=== PATIENT | female | born 1970 | race Hispanic/Latino ===

== ENCOUNTER 2020-02-29 08:38 | Emergency (ER) | payer OTHER ==
--- OUTSIDE RECORDS SUMMARY | 2020-02-29 08:40 | XMS REPORT | Continuity of Care Document ---
:1970 Author Organization Formerly [facility] t Address [address] [place] [address] Care Team Providers Name Role Phone DR YUE Attending Clinician Unavailable DR YUE Admitting Clinician Unavailable Problems This patient has no known problems. Allergies, Adverse Reactions, Alerts This patient has no known allergies or adverse reactions. Medications This patient has no known medications. Procedures This patient has no known procedures. Encounters Start End Encounter Admission Attending Care Care Encounter Source Date/Time Date/Time Type Type Clinicians Facility Department ID 2018-12-26 2018-12-26 Outpatient [facility] [id number] [facility] 04:40:00 16:30:00 [facility] 2018-06-27 2018-06-27 Outpatient [facility] [id number] [facility] 05:14:00 17:00:00 [facility] Results Test Description Test Time Test Comments Results Result Comments Source URINE [facility] 2018-06-27 07:45:00 Test Item Value Reference Range Interpretation Comme nts PREG UR (test code = PGU) NEGATIVE NEGATIVE
[2020-02-29] MEDS ORDERED: KETOROLAC 30 MG/ML INJ ONE (09:29)
--- NOTE | 2020-02-29 09:46 | EDPHYS ---
Physician Documentation [facility] Name: Christie Neal Age: 49 yrs Sex: Female : 1970 Arrival Date: 02/29/2020 Time: 08:42 Bed 17 Private MD: Jj Smith R ED Physician Roberto Albrecht HPI: 02/28 09:40 This 49 yrs old Female presents to ER via Ambulatory with complaints of Ankle tw4 Swelling, Feet Swelling. 09:40 The patient presents with pain, that is acute. The complaints affect the right ankle. tw4 Onset: The symptoms/episode began/occurred today. Context: The problem was sustained at home. Associated signs and symptoms: The patient has no apparent associated signs or symptoms. Modifying factors: The symptoms are alleviated by nothing, the symptoms are aggravated by nothing. The patient has not experienced similar symptoms in the past. 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 - Social history:: Smoking status: Patient denies any tobacco usage or history of. ROS: 09:40 Constitutional: Negative for fever, chills, and weight loss, Eyes: Negative for injury, tw4 pain, redness, and discharge, Cardiovascular: Negative for chest pain, palpitations, and edema, Respiratory: Negative for shortness of breath, cough, wheezing, and pleuritic chest pain, Abdomen/GI: Negative for abdominal pain, nausea, vomiting, diarrhea, and constipation, Back: Negative for injury and pain, Skin: Negative for injury, rash, and discoloration, Neuro: Negative for headache, weakness, numbness, tingling, and seizure. 09:40 MS/extremity: Positive for injury or acute deformity, swelling, tenderness, Negative for abrasion, contusion, decreased range of motion, deformity, erythema, laceration, tingling, warmth. Exam: 09:40 Constitutional: This is a well developed, well nourished patient who is awake, alert, tw4 and in no acute distress. Head/Face: Normocephalic, atraumatic. Cardiovascular: Regular rate and rhythm with a normal S1 and S2. No gallops, murmurs, or rubs. Normal PMI, no JVD. No pulse deficits. Respiratory: Lungs have equal breath sounds bilaterally, clear to auscultation and percussion. No rales, rhonchi or wheezes noted. No increased work of breathing, no retractions or nasal flaring. Abdomen/GI: Soft, non-tender, with normal bowel sounds. No distension or tympany. No guarding or rebound. No evidence of tenderness throughout. Neuro: Awake and alert, GCS 15, oriented to person, place, time, and situation. Cranial nerves II-XII grossly intact. Motor strength 5/5 in all extremities. Sensory grossly intact. Cerebellar exam normal. Normal gait. 09:40 Musculoskeletal/extremity: Extremities: noted in the lateral aspect of right foot and dorsum of right foot: Vital Signs: 08:49 BP 120 / 74; Pulse 69; Resp 16; Temp 98.2; Pulse Ox 97% ; Weight 58.97 kg; Height 5 ft. sv 4 in. (162.56 cm); Pain 7/10; 10:21 BP 111 / 71; Pulse 68; Resp 17 S; Pulse Ox 99% on R/A; jd3 08:49 Body Mass Index 22.31 (58.97 kg, 162.56 cm) sv MDM: 08:50 Patient medically screened. tw4 02/28 08:56 Order name: Ankle Right 3 View XRAY 4 02/28 10:05 Order name: RAD EDMS Administered Medications: 09:19 Drug: TORadol 60 mg Route: IM; Site: left deltoid; jd3 10:10 Follow up: Response: No adverse reaction jd3 Disposition: 02/29/20 09:45 Discharged to Home. Impression: Plantar fasciitis. - Condition is Stable. - Discharge Instructions: Plantar Fasciitis. - Prescriptions for Ibuprofen 800 mg Oral Tablet - take 1 tablet by ORAL route every 8 hours As needed take with food; 30 tablet. - Medication Reconciliation Form, Thank You Letter, Antibiotic Education, Prescription Opioid Use, Work release form form. - Follow up: Jj Smith MD; When: Upon discharge from the Emergency Department; Reason: Recheck today's complaints, Continuance of care, Re-evaluation by your physician. - Problem is new. - Symptoms have improved. Signatures: Dispatcher [employer] EDRomy Andino RN RN Raji Garcia RN RN Roberto Jauregui MD MD tw4 Corrections: (The following items were deleted from the chart) 10:21 09:45 02/29/2020 09:45 Discharged to Home. Impression: Plantar fasciitis. Condition is jd3 Stable. Forms are Medication Reconciliation Form, Thank You Letter, Antibiotic Education, Prescription Opioid Use. Follow up: Jj Smith; When: Upon discharge from the Emergency Department; Reason: Recheck today's complaints, Continuance of care, Re-evaluation by your physician. Problem is new. Symptoms have improved. tw4
--- NOTE | 2020-02-29 09:46 | ER ---
Nurse's Notes [facility] Name: Christie Neal Age: 49 yrs Sex: Female : 1970 Arrival Date: 02/29/2020 Time: 08:42 Bed 17 Private MD: Jj Smith R Diagnosis: Plantar fasciitis Presentation: 02/28 08:49 Chief complaint: Patient states: right ankle swelling/pain x 1 day. Denies injury. 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 Coronavirus screen: Client denies travel out of the [place] in the last 14 days. At this time, the client does not indicate any symptoms associated with coronavirus-19. Ebola Screen: No symptoms or risks identified at this time. Initial Sepsis Screen: Does the patient meet any 2 criteria? No. Patient's initial sepsis screen is negative. Does the patient have a suspected source of infection? No. Patient's initial sepsis screen is negative. Risk Assessment: Do you want to hurt yourself or someone else? Patient reports no desire to harm self or others. Onset of symptoms was February 28, 2020. 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 - Social history:: Smoking status: Patient denies any tobacco usage or history of. Screenin:30 Abuse screen: Denies threats or abuse. Nutritional screening: No deficits noted. jd3 Tuberculosis screening: No symptoms or risk factors identified. Fall Risk Ambulatory Aid- None/Bed Rest/Nurse Assist (0 pts). Gait- Normal/Bed Rest/Wheelchair (0 pts) Mental Status- Oriented to own ability (0 pts). Total Haas Fall Scale indicates No Risk (0-24 pts). Assessment: 09:29 General: Appears in no apparent distress. uncomfortable, Behavior is calm, cooperative, jd3 appropriate for age. Pain: Complains of pain in right foot and right ankle Quality of pain is described as aching, tender. Neuro: Level of Consciousness is awake, alert, obeys commands, Oriented to person, place, time, situation. Cardiovascular: Denies chest pain, Capillary refill < 3 seconds Patient's skin is warm and dry. Respiratory: Airway is patent Respiratory effort is even, unlabored, Respiratory pattern is regular, symmetrical, Denies cough, shortness of breath. GI: No signs and/or symptoms were reported involving the gastrointestinal system. : No signs and/or symptoms were reported regarding the genitourinary system. EENT: No signs and/or symptoms were reported regarding the EENT system. Derm: Skin is intact, Skin is dry, Skin is normal, Skin temperature is warm. Musculoskeletal: Circulation, motion, and sensation intact. Range of motion: intact in all extremities, Swelling present in right foot and right ankle. 10:20 Reassessment: Patient appears in no apparent distress at this time. Patient and/or jd3 family updated on plan of care and expected duration. Pain level reassessed. Patient is alert, oriented x 3, equal unlabored respirations, skin warm/dry/pink. even and steady gait upon discharge. Patient states feeling better. Vital Signs: 08:49 BP 120 / 74; Pulse 69; Resp 16; Temp 98.2; Pulse Ox 97% ; Weight 58.97 kg; Height 5 ft. sv 4 in. (162.56 cm); Pain 7/10; 10:21 BP 111 / 71; Pulse 68; Resp 17 S; Pulse Ox 99% on R/A; jd3 08:49 Body Mass Index 22.31 (58.97 kg, 162.56 cm) sv ED Course: 08:42 Patient arrived in ED. as 08:42 Jj Smith MD is Private Physician. as 08:49 Roberto Albrecht MD is Attending Physician. tw4 08:50 Triage completed. sv 08:51 Arm band placed on. sv 09:09 Raji Davis, ESTEFANIA is Primary Nurse. jd3 09:31 Patient has correct armband on for positive identification. Bed in low position. Call jd3 light in reach. Side rails up X 1. Pulse ox on. NIBP on. 09:43 Jj Smith MD is Referral Physician. tw4 10:12 Ankle Right 3 View XRAY Sent. sv 10:20 No provider procedures requiring assistance completed. Patient did not have IV access jd3 during this emergency room visit. Administered Medications: : Drug: TORadol 60 mg Route: IM; Site: left deltoid; jd3 10:10 Follow up: Response: No adverse reaction jd3 Outcome: :45 Discharge ordered by . tw4 10:20 Discharged to home ambulatory, with family. jd3 10:20 Condition: stable 10:20 Discharge instructions given to patient, Instructed on discharge instructions, follow up and referral plans. medication usage, Demonstrated understanding of instructions, follow-up care, medications, Prescriptions given X 1. 10:21 Patient left the ED. jd3 Signatures: Romy Rivera, RN RN Ashwini Collier Jonathon, RN RN Roberto Jauregui, MD VIGIL tw4
--- NOTE | 2020-02-29 10:04 | RAD REPORT ---
EXAM DESCRIPTION: RAD - Ankle Right 3 View - 02/29/2020 9:21 am CLINICAL HISTORY: PAIN COMPARISON: No comparisons FINDINGS: Soft tissue swelling is seen about the ankle. No acute fracture or dislocation seen. Moder ate plantar calcaneal spur.
[2020-02-29 10:29] VITALS: TEMP 98.2
[2020-02-29 10:30] VITALS: BP 111/71; O2SAT 99
== END 2020-02-29 10:21 | disposition home or self-care (01) ==
LOC: ER 08:38
DX: M72.2 Plantar fascial fibromatosis (principal); I10 Essential (primary) hypertension
CPT/HCPCS: 96372; 99284